=== PATIENT | female | born 1945 | race Caucasian/White ===

== ENCOUNTER 2016-04-24 12:41 | Outpatient (RCR) | payer MEDICARE, OTHER ==
[~2016-04-24 12:41] MED LIST: ALLO300T2 PO; B2/M1TAB PO; CLIN-62; CYCL10TA9 PO; DESL5TAB PO; DICL100G18 TP; ESTR0.5T PO; ESTR42.52 VG; FLUT16SP22 NSEACH; FLUT50DI IH; LEVO88TA26 PO; LISI1TAB6 PO; LISI1TAB8 PO; NTR50C; OLME20TA5; OMEP40CA36 PO; ONDA4TAB8 SL; OXYC-12; OXYC-197 PO; PRM25T PO; PROP1TAB77; SMTR50T PO; TRAM-21 PO; TRAM50TA2 PO; TRAZ-144 PO; VIT1CAPS8 PO; VIT1TABL26 PO; XYLIMELTS PO
--- OUTSIDE RECORDS SUMMARY | 2016-04-24 12:45 | XMS REPORT | Continuity of Care Document ---
Author Author [facility] Organization [facility] Address Unknown Phone Unavailable Care Team Providers Care Electrical Assembly Technician Name Role Phone NIKUNJ HA MD PCP Insurance Providers Payer Name Policy Number Subscriber Name Relationship [employer] [id number] Eduar Cedeño 16 Self / Same As Patient GE [id number] Eduar Cedeño 16 Self / Same As Patient Advance Directives Directive Response Recorded Date/Time Advance Directives Yes 07/17/14 12:19pm Organ Donor Yes 07/17/14 12:19pm Resuscitation Status Full Code 07/17/14 12:19pm Problems No known problems or medical conditions. Medications Medication Dose Route Sig Days/Qty Instructions Order Date Discontinued Date Status Levothyroxine Sodium 88 Mcg PO DAILY 11/28/08 Active Olmesartan 11/28/08 07/14/14 Discontinued Nitrofurantoin Macrocrystals 11/28/08 07/14/14 Discontinued Propoxyphene HCl/Acetaminophen 11/28/08 07/14/14 Discontinued Clindamycin HCl 11/28/08 07/14/14 Discontinued Oxycodone Hcl/Acetaminophen 11/28/08 07/14/14 Discontinued Promethazine HCl 1 Tab PO FOUR TIMES DAILY 14 Qty PRN NAUSEA 11/28/08 Discontinued Tramadol Hcl 50 Mg PO EVERY 6 HOURS PRN PAIN 07/14/14 07/17/14 Discontinued Trazodone Hcl 50 Mg PO BEDTIME 07/14/14 Active Fluticasone Propionate 1 Puff IH TWICE A DAY PRN ALLERGIES PRN ALLERGIES 07/14/14 07/14/14 Discontinued Omeprazole 40 Mg PO DAILY 07/14/14 Active Allopurinol 300 Mg PO DAILY 07/14/14 Active Estradiol 1 Appful VG WEEKLY 07/14/14 Active Vit C/E/Zn/Coppr/Lutein/Zeaxan 1 Each PO DAILY 07/14/14 Active Cyclobenzaprine HCl (Flexeril) 10 Mg PO THREE TIMES A DAY PRN MUSCLE SPASMS 07/14/14 07/17/14 Discontinued Lisinopril/Hydrochlorothiazide 1 Tab PO DAILY 07/14/14 07/17/14 Discontinued Fluticasone Propionate 1 Sprays NSEACH DAILY PRN ALLERGIES PRN ALLERGIES 07/14/14 Active B2/Mag Cit & Ox/Feverfew 1 Each PO 07/17/14 Active Lisinopril/Hydrochlorothiazide 1 Tab PO DAILY 07/17/14 Active Tramadol Hcl 50 Mg PO TWICE A DAY PRN PAIN 20 Qty 07/17/14 Active Social History Social History Problem Response Recorded Date/Time Alcohol Use Denies Use 07/17/2014 12:19pm Recreational Drug Use No 07/17/2014 12:19pm Recent Foreign Travel No 07/17/2014 12:19pm Smoking Status Never a Smoker 07/17/2014 12:15pm Query Response Start Date Stop Date Smoking Status Never a Smoker Hospital Discharge Instructions No hospital discharge instructions. Plan of Care No plan of care. Functional Status No functional status results. Allergies, Adverse Reactions, Alerts Allergen Type Severity Reaction Status Last Updated Sulfa (Sulfonamide Antibiotics) ([id number]) Allergy Unknown Active Oxycodone Allergy Unknown NAUSEA Active 07/14/14 Acetaminophen Allergy Unknown NAUSEA Active 07/14/14 methylprednisolone ([id number]) Allergy Unknown Active 07/14/14 Trimethoprim Allergy Unknown Active 07/14/14 amoxicillin ([id number]) Allergy Mild Active 11/28/08 Celecoxib Allergy Unknown Active 07/14/14 Immunizations No immunization records. Vital Signs Acute Vital Signs Vital Response Date/Time Temperature (Fahrenheit) 98.4 degrees F (97.6 - 99.5) Temperature (Calculated Celsius) 36.09775 degrees C (36.4 - 37.5) Temperature Source Temporal Pulse Rate (adult) 73 bpm (60 - 90) Respiratory Rate 16 bpm (12 - 24) O2 Sat by Pulse Oximetry 95 % (88 - 100) Blood Pressure 182/68 mm Hg Pain Pain Intensity 2 Height (Feet) 5 feet Height (Inches) 6.00 inches Height (Calculated Centimeters) 167.642749 cm Weight (Pounds) 202 pounds Weight (Calculated Grams) 19012.660 gm Weight (Calculated Kilograms) 91.619603 kilograms Calculated BMI 33.61 Results Laboratory Results Test Name Result Units Flags Reference Collection Date/Time Result Date/ Time Comments Sodium Level 143 MMOL/L 135-145 07/17/2014 12:04pm 07/17/2014 12:30pm Potassium Level 3.6 MMOL/L 3.6-5.0 07/17/2014 12:04pm 07/17/2014 12: 30pm Chloride Level 106 MMOL/L 98-107 07/17/2014 12:04pm 07/17/2014 12:30pm Carbon Dioxide Level 26 MMOL/L 21-32 07/17/2014 12:04pm 07/17/2014 12: 30pm Blood Urea Nitrogen 10 MG/DL 7-18 07/17/2014 12:04pm 07/17/2014 12: 30pm Creatinine 0.79 MG/DL 0.60-1.30 07/17/2014 12:04pm 07/17/2014 12:30pm BUN/Creatinine Ratio 13 07/17/2014 12:04pm 07/17/2014 12:30pm Estimat Glomerular Filtration Rate > 60 07/17/2014 12:04pm 2014 12:30pm GFR INTERPRETIVE DATA UNITS FOR ESTIMATED GFR (eGFR): mL/min/1.73 M2 REFERENCE RANGE FOR ESTIMATED GFR (eGFR) eGFR NORMAL eGFR >60 MODERATELY DECREASED eGFR 30-59 SEVERLY DECREASED eGFR 15-29 KIDNEY FAILURE <15 (OR DIALYSIS) Glucose Level 101 MG/DL 70-105 07/17/2014 12:04pm 07/17/2014 12:30pm Calcium Level 9.7 MG/DL 8.5-10.1 07/17/2014 12:04pm 07/17/2014 12:30pm Procedures Procedure Status Date Provider(s) Excision of lesion completed 07/17/14 MERNA ONEIL MD Encounters Encounter Location Date/Time Registered [facility] 07/17/14 10:52am Registered Clinic [facility] 07/13/14 12:51pm
[2016-04-24 13:03] LABS: BASOPHILS # (AUTO) 0.1 10^3/uL (0.0-0.1); BASOPHILS % (AUTO) 1 % (0-10); EOSINOPHILS # (AUTO) 0.2 10^3/uL (0.0-0.3); EOSINOPHILS % (AUTO) 1 % (0-10); LYMPHOCYTES # (AUTO) 3.3 X 10^3 (1.0-4.0); LYMPHOCYTES % (AUTO) 29 % (12-44); MEAN CORPUSCULAR HEMOGLOBIN 27 PG (25-34); MEAN CORPUSCULAR HGB CONC 33 G/DL (32-36); MEAN CORPUSCULAR VOLUME 83 FL (80-99); MEAN PLATELET VOLUME 9.6 FL (7.4-10.4); MONOCYTES # (AUTO) 0.7 X 10^3 (0.0-1.0); MONOCYTES % (AUTO) 6 % (0-12); NEUTROPHILS # (AUTO) 7.3 X 10^3 (1.8-7.8); NEUTROPHILS % (AUTO) 63 % (42-75); PLATELET COUNT 382 10^3/uL (130-400); RED BLOOD COUNT 4.41 10^6/uL (4.35-5.85); RED CELL DISTRIBUTION WIDTH 17.1 % (10.0-14.5); WHITE BLOOD COUNT 11.6 10^3/uL (4.3-11.0)
[2016-04-24 13:27] LABS: ALANINE AMINOTRANSFERASE 21 U/L (0-55); ALBUMIN 3.9 G/DL (3.2-4.5); ANION GAP 10 MMOL/L (5-14); ASPARTATE AMINO TRANSFERASE 20 U/L (5-34); BILIRUBIN,TOTAL 0.4 MG/DL (0.1-1.0); BLOOD UREA NITROGEN 13 MG/DL (7-18); BUN/CREATININE RATIO 15; CARBON DIOXIDE 23 MMOL/L (21-32); CHLORIDE 103 MMOL/L (98-107); CREATININE SERUM 0.87 MG/DL (0.60-1.30); GFR ESTIMATED > 60; GLUCOSE 145 MG/DL (70-105); POTASSIUM 3.5 MMOL/L (3.6-5.0); SODIUM 136 MMOL/L (135-145)
== END 2016-07-23 | disposition home or self-care (01) ==
LOC: ONC 12:41
PROVIDERS: ATTEND Internal Medicine Hematology & Oncology
DX: D64.9 Anemia, unspecified (principal); D47.3 Essential (hemorrhagic) thrombocythemia; D72.829 Elevated white blood cell count, unspecified; I10 Essential (primary) hypertension; E03.9 Hypothyroidism, unspecified; M19.90 Unspecified osteoarthritis, unspecified site; E66.9 Obesity, unspecified; Z68.33 Body mass index [BMI] 33.0-33.9, adult; Z79.899 Other long term (current) drug therapy
CPT/HCPCS: 36415; 80053; 82728; 83540; 85025; 99213

== ENCOUNTER → 2016-05-01 | Outpatient (CLI) | payer MEDICARE, OTHER ==
--- OUTSIDE RECORDS SUMMARY | 2016-05-01 08:19 | XMS REPORT | Continuity of Care Document ---
Author Author [facility] Organization [facility] Address Unknown Phone Unavailable Care Team Providers Care Rework Machine Operator Name Role Phone NIKUNJ HA MD PCP Insurance Providers Payer Name Policy Number Subscriber Name Relationship [employer] [id number] Eduar Cedeño 16 Self / Same As Patient GE [id number] Eduar Cedeño 16 Self / Same As [...] Reaction Status Last Updated Sulfa (Sulfonamide Antibiotics) ([id number]) Allergy Unknown Active Oxycodone Allergy Unknown NAUSEA Active 07/14/14 Acetaminophen Allergy Unknown NAUSEA Active 07/14/14 methylprednisolone ([id number]) Allergy Unknown Active 07/14/14 Trimethoprim Allergy Unknown Active 07/14/14 amoxicillin ([id number]) Allergy Mild Active 11/28/08 Celecoxib Allergy Unknown Active 07/14/14 Immunizations No immunization records. Vital Signs Acute Vital Signs Vital Response Date/Time Temperature (Fahrenheit) 98.4 degrees F (97.6 - 99.5) Temperature (Calculated Celsius) 36.05544 degrees C (36.4 - 37.5) Temperature Source Temporal Pulse Rate (adult) 73 bpm (60 - 90) Respiratory Rate 16 bpm (12 - 24) O2 Sat by Pulse Oximetry 95 % (88 - 100) Blood Pressure 182/68 mm Hg Pain Pain Intensity 2 Height (Feet) 5 feet Height (Inches) 6.00 inches Height (Calculated Centimeters) 167.047371 cm Weight (Pounds) 202 pounds Weight (Calculated Grams) 73629.660 gm Weight (Calculated Kilograms) 91.151789 kilograms Calculated BMI 33.61 Results Laboratory Results [...] Location Date/Time Registered Surgical Day [facility] 07/17/14 10:52am Registered Clinic [facility] 07/13/14 12:51pm
--- NOTE | 2016-05-01 19:15 | Diagnostic Imaging Report ---
EXAMINATION: DEXA scan. INDICATION: Menopause . TECHNIQUE: Bone mineral density estimated based on dual energy radiography over the lumbar spine and femoral necks, was performed. FINDINGS: The lumbar spine T-score is -0.4 T score over the left femoral neck is -0.2 and on the right side is 0. IMPRESSION: Bone mineral density within normal range. Dictated by: Dictated on workstation # [id number]
== END ==
LOC: RAD 08:16
PROVIDERS: ATTEND Internal Medicine
DX: Z13.820 Encounter for screening for osteoporosis (principal); N95.1 Menopausal and female climacteric states
CPT/HCPCS: 77080

== ENCOUNTER → 2016-05-28 | Outpatient (CLI) | payer MEDICARE, OTHER ==
--- NOTE | 2016-05-29 19:41 | Diagnostic Imaging Report ---
Bilateral screening mammogram. The current study was also evaluated with a Computer Aided Detection (CAD) system. INDICATION: Screening. No current complaints stated on the questionnaire. COMPARISON: 05/28/15. FINDINGS: The breasts are composed of scattered fibroglandular densities. There are bilateral well-circumscribed nodular densities slightly more prominent on the right side likely related to fibrocystic changes. Waxing and waning over the years is seen when compared to multiple prior exams. No suspicious irregular mass. No cluster of calcification of suspicion is seen. IMPRESSION: Findings suggestive of fibrocystic changes in the breasts. No suspicious mass. ACR BI-RADS Category 2: Benign findings. Result letter will be mailed to the patient. Note: At least 10% of breast cancer is not imaged by mammography. Dictated by: Dictated on workstation # [id number]
== END ==
LOC: RAD 08:59
PROVIDERS: ATTEND Internal Medicine Hematology & Oncology
DX: Z12.31 Encounter for screening mammogram for malignant neoplasm of breast (principal)
CPT/HCPCS: 77067

== ENCOUNTER 2017-04-23 13:24 | Outpatient (RCR) | payer MEDICARE, OTHER ==
[2017-04-23 13:40] LABS: BASOPHILS # (AUTO) 0.1 10^3/uL (0.0-0.1); BASOPHILS % (AUTO) 1 % (0-10); EOSINOPHILS # (AUTO) 0.2 10^3/uL (0.0-0.3); EOSINOPHILS % (AUTO) 1 % (0-10); HEMATOCRIT 35 % (35-52); HEMOGLOBIN 11.6 G/DL (11.5-16.0); LYMPHOCYTES # (AUTO) 3.9 X 10^3 (1.0-4.0); LYMPHOCYTES % (AUTO) 29 % (12-44); MEAN CORPUSCULAR HEMOGLOBIN 28 PG (25-34); MEAN CORPUSCULAR HGB CONC 33 G/DL (32-36); MEAN CORPUSCULAR VOLUME 83 FL (80-99); MEAN PLATELET VOLUME 9.8 FL (7.4-10.4); MONOCYTES # (AUTO) 0.9 X 10^3 (0.0-1.0); MONOCYTES % (AUTO) 6 % (0-12); NEUTROPHILS # (AUTO) 8.5 X 10^3 (1.8-7.8); NEUTROPHILS % (AUTO) 63 % (42-75); PLATELET COUNT 402 10^3/uL (130-400); RED BLOOD COUNT 4.21 10^6/uL (4.35-5.85); WHITE BLOOD COUNT 13.5 10^3/uL (4.3-11.0)
[2017-04-23 13:52] LABS: BILIRUBIN,TOTAL 0.3 MG/DL (0.1-1.0); CALCIUM 9.1 MG/DL (8.5-10.1); CREATININE SERUM 1.09 MG/DL (0.60-1.30); POTASSIUM 3.7 MMOL/L (3.6-5.0); TOTAL PROTEIN 7.1 GM/DL (6.4-8.2)
== END 2017-07-22 | disposition home or self-care (01) ==
LOC: ONC 13:24
PROVIDERS: ATTEND Internal Medicine Hematology & Oncology
DX: D72.829 Elevated white blood cell count, unspecified (principal); D47.3 Essential (hemorrhagic) thrombocythemia; I10 Essential (primary) hypertension; E03.9 Hypothyroidism, unspecified; M19.91 Primary osteoarthritis, unspecified site; E66.9 Obesity, unspecified; Z68.33 Body mass index [BMI] 33.0-33.9, adult; Z79.899 Other long term (current) drug therapy
CPT/HCPCS: 36415; 80053; 85025; 99213

== ENCOUNTER → 2017-06-03 | Outpatient (CLI) | payer MEDICARE, OTHER ==
--- NOTE | 2017-06-05 11:43 | Diagnostic Imaging Report ---
Digital mammogram, bilateral screening. Comparison: This study is compared to the prior exams of 05/28/2016, 05/28/2015, 05/24/2014 and 05/17/2013. At this time there are no current complaints. Findings: The fibroglandular tissue in both breasts is heterogeneously dense. This does limit the sensitivity of this exam. The previous studies have shown several small rounded/oval densities in both breasts. In the interval since the prior exam a 6 mm rounded density has developed in the midportion of the left breast just medial to the nipple line. This finding is only clearly seen on the craniocaudad view and this may be secondary to superimposition as opposed to a discrete abnormality.. I would recommend that a compression of this area be obtained in the CC projection as well as a true lateral view of the left breast for further study. Rolled views in the CC projection should be obtained as well. If this density persists, ultrasound may be necessary as well. The overall appearance of the breasts has not changed significantly otherwise. There is no primary or secondary sign of malignancy noted. Impression: Additional mammographic views of the left breast will be recommended for further study. Ultrasound may also be necessary. ACR BI-RADS Category 0: Incomplete. (Needs additional imaging evaluation). Result letter will be mailed to the patient. Note: At least 10% of breast cancer is not imaged by mammography. Dictated on workstation # [id number]
== END ==
LOC: RAD 09:05
PROVIDERS: ATTEND Internal Medicine Hematology & Oncology
DX: Z12.31 Encounter for screening mammogram for malignant neoplasm of breast (principal)
CPT/HCPCS: 77067

== ENCOUNTER → 2017-12-21 | Outpatient (CLI) | payer MEDICARE, OTHER ==
[~2017-12-21] MED LIST changes: -OXYC-197 PO; +OXYC1TAB87 PO
--- NOTE | 2017-12-21 13:26 | Diagnostic Imaging Report ---
INDICATION: Six-month followup of left breast density. COMPARISON: 06/03/2017 and 06/22/2017. TECHNIQUE: Digital diagnostic mammography was performed of the left breast with a Computer Aided Detection (CAD) system. FINDINGS: The left breast is heterogeneously dense, limiting the sensitivity of mammography. There are numerous rounded densities throughout the left breast, presumably representing cysts. The previously evaluated circumscribed density in the medial left breast at mid depth is similar to perhaps slightly larger. Today, this appears to represent a cyst as this has fairly smooth margins. This appears inferiorly located on the MLO view approximately 5-6 cm from the nipple. Further evaluation of this area with ultrasound will be performed. No suspicious calcifications are seen. IMPRESSION: Persistent circumscribed density in the lower and slightly inner left breast at approximately the 7 o'clock location 5-6 cm from the nipple. This most likely represents a cyst but further evaluation with ultrasound is recommended and will be performed today. ACR BI-RADS Category 0: Incomplete. (Needs additional imaging evaluation). Result letter will be mailed to the patient. Note: At least 10% of breast cancer is not imaged by mammography. Dictated by: Dictated on workstation # [id number]
--- NOTE | 2017-12-21 20:16 | Diagnostic Imaging Report ---
INDICATION: Abnormal mammogram. This study is performed for further evaluation. COMPARISON: Comparison is made with diagnostic mammogram performed earlier the same day. FINDINGS: Sonographic interrogation of the left breast particularly of the medial left breast was performed. There are numerous simple-appearing cysts located at the 9 o'clock and 7 o'clock locations. Cyst at the 7 o'clock location 4 cm from the nipple likely accounts for the mammographic density measuring approximately 7 mm in diameter. A cyst at the 7 o'clock location 2 cm from the nipple also measures 7 mm. There are two cysts at the 9 o'clock location 1 cm from the nipple measuring 5 mm and 7 mm. No solid mass is seen. IMPRESSION: Multiple left breast cysts. One cyst at the 7 o'clock location 4 cm from the nipple likely accounts for the mammographic density. The patient may return to routine annual screening mammography. ACR BI-RADS Category 2: Benign findings. Dictated by: Dictated on workstation # [id number]
== END ==
LOC: RAD 12:25
PROVIDERS: ATTEND Internal Medicine Hematology & Oncology
DX: N60.02 Solitary cyst of left breast (principal); R92.2 Inconclusive mammogram
CPT/HCPCS: 76642

== ENCOUNTER → 2018-06-23 | Outpatient (CLI) | payer MEDICARE, OTHER ==
--- NOTE | 2018-06-24 21:34 | Diagnostic Imaging Report ---
INDICATION: Routine screening. Comparison is made with prior mammograms from 06/03/2017 and 05/28/2016. 2-D and 3-D bilateral screening mammography was performed with a Computer Aided Detection (CAD) system. FINDINGS: Both breasts are heterogeneously dense, limiting the sensitivity of mammography. Numerous rounded masses throughout both breasts are again noted and most suggestive of cysts. No spiculated masses or malignant-appearing microcalcifications are seen. The axillae are unremarkable. IMPRESSION: No mammographic features suspicious for malignancy are identified. ACR BI-RADS Category 2: Benign findings. Result letter will be mailed to the patient. Note: At least 10% of breast cancer is not imaged by mammography. Dictated by: Dictated on workstation # [id number]
== END ==
LOC: RAD 12:11
PROVIDERS: ATTEND Internal Medicine Hematology & Oncology
DX: Z12.31 Encounter for screening mammogram for malignant neoplasm of breast (principal)
CPT/HCPCS: 77067

== ENCOUNTER → 2018-10-15 | Outpatient (CLI) | payer MEDICARE, OTHER ==
[~2018-10-15] VITALS: Ht 162.6 cm; Wt 90.7 kg
[~2018-10-15] MED LIST changes: +CATHETER FLUSH 10 ML SYR IV PRN; -DESL5TAB PO; +DESL5TAB41 PO; +REGADENOSON 0.4 MG/5 ML SYR (LEXISCAN) IV ONE
[2018-10-15 08:30] VITALS: BP 151/58
[2018-10-15 08:34] VITALS: BP 167/60
--- NOTE | 2018-10-16 13:44 | Cardiology Stress Test Report ---
Stress Test Report Type of NM Stress Test: Test Type: LEXISCAN 0.4MG/5ML Date of Procedure/Referring: Date of Procedure: Oct 15, 2018 PCP Bibi William DO Admitting Physician Bibi William DO Indications: Fatigue Baseline Heart Rate: 62 Baseline Blood Pressure: Blood Pressure Systolic: 167 Blood Pressure Diastolic: 60 Baseline EKG: Baseline EKG: sinus rhythm Summary & Conclusion: Summary: The patient was brought to the stress lab after informed consent was taken. Stress test was performed according to the Lexiscan protocol. 0.4 mg of IV Lexiscan was given. Low-grade exercise was performed. Baseline EKG showed sinus rhythm at 62 BPM. Initial blood pressure was 151/58 mmHg. Maximum heart rate was 84 bpm and blood pressure 172/60 mmHg. Patient did not have any chest pain, arrhythmias or ST segment changes during the stress test. 11 mCi of Myoview were given for rest imaging and 30.1 mCi of Myoview given for stress imaging. Transient ischemic dilatation score 1.1, EF 84 percent. Normal wall motion. Normal myocardial perfusion imaging during rest and stress. Conclusion: Pharmacological stress test was negative for ischemia. Normal LV function with no wall motion abnormalities. Normal myocardial perfusion imaging during rest and stress. Copy Copies To 1: BIBI WILLIAM M RIZWAN MD Oct 16, 2018 13:44
== END ==
LOC: CARD 06:34
PROVIDERS: ATTEND Internal Medicine
DX: R53.83 Other fatigue (principal)
CPT/HCPCS: 78452; 93017

== ENCOUNTER 2018-10-21 12:55 | Outpatient (RCR) | payer MEDICARE, OTHER ==
[2018-07-29 13:39] LABS: BASOPHILS # (AUTO) 0.1 10^3/uL (0.0-0.1); BASOPHILS % (AUTO) 1 % (0-10); EOSINOPHILS # (AUTO) 0.2 10^3/uL (0.0-0.3); EOSINOPHILS % (AUTO) 1 % (0-10); HEMATOCRIT 33 % (35-52); HEMOGLOBIN 11.1 G/DL (11.5-16.0); LYMPHOCYTES # (AUTO) 3.5 X 10^3 (1.0-4.0); LYMPHOCYTES % (AUTO) 25 % (12-44); MEAN CORPUSCULAR HEMOGLOBIN 28 PG (25-34); MEAN CORPUSCULAR HGB CONC 34 G/DL (32-36); MEAN CORPUSCULAR VOLUME 83 FL (80-99); MEAN PLATELET VOLUME 9.9 FL (7.4-10.4); MONOCYTES # (AUTO) 0.8 X 10^3 (0.0-1.0); MONOCYTES % (AUTO) 6 % (0-12); NEUTROPHILS # (AUTO) 9.1 X 10^3 (1.8-7.8); NEUTROPHILS % (AUTO) 67 % (42-75); PLATELET COUNT 377 10^3/uL (130-400); RED CELL DISTRIBUTION WIDTH 15.5 % (10.0-14.5); WHITE BLOOD COUNT 13.7 10^3/uL (4.3-11.0)
[2018-07-29 13:58] LABS: ALBUMIN 4.1 GM/DL (3.2-4.5); BILIRUBIN,TOTAL 0.2 MG/DL (0.1-1.0); CALCIUM 9.5 MG/DL (8.5-10.1); CREATININE SERUM 1.05 MG/DL (0.60-1.30); POTASSIUM 3.7 MMOL/L (3.6-5.0); TOTAL PROTEIN 6.7 GM/DL (6.4-8.2); URIC ACID 6.1 MG/DL (2.6-7.2)
[~2018-10-21 12:55] MED LIST changes: -CATHETER FLUSH 10 ML SYR IV PRN; -REGADENOSON 0.4 MG/5 ML SYR (LEXISCAN) IV ONE
[2018-10-21 13:12] LABS: BASOPHILS # (AUTO) 0.1 10^3/uL (0.0-0.1); BASOPHILS % (AUTO) 1 % (0-10); EOSINOPHILS # (AUTO) 0.2 10^3/uL (0.0-0.3); EOSINOPHILS % (AUTO) 2 % (0-10); HEMATOCRIT 35 % (35-52); HEMOGLOBIN 11.6 G/DL (11.5-16.0); LYMPHOCYTES # (AUTO) 3.2 X 10^3 (1.0-4.0); LYMPHOCYTES % (AUTO) 25 % (12-44); MEAN CORPUSCULAR HEMOGLOBIN 29 PG (25-34); MEAN CORPUSCULAR HGB CONC 34 G/DL (32-36); MEAN CORPUSCULAR VOLUME 85 FL (80-99); MEAN PLATELET VOLUME 9.7 FL (7.4-10.4); MONOCYTES # (AUTO) 0.7 X 10^3 (0.0-1.0); MONOCYTES % (AUTO) 5 % (0-12); NEUTROPHILS # (AUTO) 8.9 X 10^3 (1.8-7.8); NEUTROPHILS % (AUTO) 68 % (42-75); PLATELET COUNT 419 10^3/uL (130-400); RED CELL DISTRIBUTION WIDTH 15.9 % (10.0-14.5); WHITE BLOOD COUNT 13.1 10^3/uL (4.3-11.0)
[2018-10-21 13:33] LABS: ALBUMIN 4.3 GM/DL (3.2-4.5); BILIRUBIN,TOTAL 0.3 MG/DL (0.1-1.0); CALCIUM 9.5 MG/DL (8.5-10.1); CREATININE SERUM 1.03 MG/DL (0.60-1.30); POTASSIUM 3.8 MMOL/L (3.6-5.0); TOTAL PROTEIN 7.5 GM/DL (6.4-8.2)
== END 2018-10-27 | disposition home or self-care (01) ==
LOC: ONC 12:55
PROVIDERS: ATTEND Internal Medicine Hematology & Oncology
DX: D72.829 Elevated white blood cell count, unspecified (principal); D47.3 Essential (hemorrhagic) thrombocythemia; D64.9 Anemia, unspecified; I10 Essential (primary) hypertension; E03.9 Hypothyroidism, unspecified; K21.9 Gastro-esophageal reflux disease without esophagitis; M19.91 Primary osteoarthritis, unspecified site; E66.9 Obesity, unspecified; Z68.33 Body mass index [BMI] 33.0-33.9, adult; Z79.899 Other long term (current) drug therapy
CPT/HCPCS: 36415; 80053; 82728; 83540; 84550; 85025; 99213

== ENCOUNTER 2019-01-11 10:07 | Outpatient (CLI) | payer MEDICARE, OTHER ==
[~2019-01-11] VITALS: Ht 167.7 cm; Wt 93.2 kg
[2019-01-11] MEDS ORDERED: TRAZ-222 PO (10:39)
[2019-01-11] MEDS ORDERED: OMEP20TA7 PO (10:39)
[2019-01-11] MEDS ORDERED: LEVO88TA54 PO (10:39)
[2019-01-11] MEDS ORDERED: ALLO300T2 PO (10:39)
[2019-01-11] MEDS ORDERED: LORA10TA7 PO (10:40)
[2019-01-11] MEDS ORDERED: CYAN200014 PO (10:40)
[2019-01-11] MEDS ORDERED: FLAX100031 PO (10:40)
== END 2019-01-11 10:44 | disposition home or self-care (01) ==
LOC: PREOP 10:07
PROVIDERS: ATTEND Surgery
DX: Z01.818 Encounter for other preprocedural examination (principal)

== ENCOUNTER 2019-02-21 13:42 | Outpatient (RCR) | payer MEDICARE, OTHER ==
[2019-02-10 15:54] LABS: BASOPHILS # (AUTO) 0.1 10^3/uL (0.0-0.1); BASOPHILS % (AUTO) 1 % (0-10); EOSINOPHILS # (AUTO) 0.3 10^3/uL (0.0-0.3); EOSINOPHILS % (AUTO) 3 % (0-10); HEMATOCRIT 33 % (35-52); LYMPHOCYTES # (AUTO) 3.6 X 10^3 (1.0-4.0); LYMPHOCYTES % (AUTO) 28 % (12-44); MEAN CORPUSCULAR HEMOGLOBIN 28 PG (25-34); MEAN CORPUSCULAR HGB CONC 33 G/DL (32-36); MEAN CORPUSCULAR VOLUME 85 FL (80-99); MEAN PLATELET VOLUME 10.2 FL (7.4-10.4); MONOCYTES % (AUTO) 8 % (0-12); NEUTROPHILS % (AUTO) 62 % (42-75); PLATELET COUNT 413 10^3/uL (130-400); RED CELL DISTRIBUTION WIDTH 15.5 % (10.0-14.5)
[2019-02-10 16:14] LABS: ALBUMIN 4.1 GM/DL (3.2-4.5); BILIRUBIN,TOTAL 0.2 MG/DL (0.1-1.0); CREATININE SERUM 1.14 MG/DL (0.60-1.30); POTASSIUM 3.6 MMOL/L (3.6-5.0); TOTAL PROTEIN 7.1 GM/DL (6.4-8.2)
[~2019-02-21 13:42] MED LIST changes: +CYAN200014 PO; +FLAX100031 PO; +LEVO88TA54 PO; +LISI1TAB25 PO; +LORA10TA7 PO; +OMEP20TA7 PO; +TRZ50T PO
== END 2019-05-11 | disposition home or self-care (01) ==
LOC: ONC 13:42
PROVIDERS: ATTEND Internal Medicine Hematology & Oncology
DX: D72.829 Elevated white blood cell count, unspecified (principal); D47.3 Essential (hemorrhagic) thrombocythemia; D64.9 Anemia, unspecified; I10 Essential (primary) hypertension; E03.9 Hypothyroidism, unspecified; K21.9 Gastro-esophageal reflux disease without esophagitis; M19.91 Primary osteoarthritis, unspecified site; E66.9 Obesity, unspecified; K92.9 Disease of digestive system, unspecified; Z79.899 Other long term (current) drug therapy; Z68.33 Body mass index [BMI] 33.0-33.9, adult
CPT/HCPCS: 80053; 82728; 83540; 85025; 99213

== ENCOUNTER → 2019-07-18 | Outpatient (CLI) | payer MEDICARE, OTHER ==
--- NOTE | 2019-07-18 10:53 | Diagnostic Imaging Report ---
INDICATION: Routine screening. COMPARISON: 06/23/2018 and 06/03/2017. TECHNIQUE: 2D and 3D bilateral screening mammography was performed with CAD. FINDINGS: The breasts remain heterogeneously dense, limiting the sensitivity of mammography. Rounded nodular densities in both breasts are again noted and again likely represent small cysts. These have waxed and waned in size since the prior exam. No spiculated mass or malignant appearing microcalcifications are seen. There are benign calcifications present. The axillae are unremarkable. IMPRESSION: No mammographic features suspicious for malignancy are identified. ACR BI-RADS Category 2: Benign findings. Result letter will be mailed to the patient. Note: At least 10% of breast cancer is not imaged by mammography. Dictated by: Dictated on workstation # [id number]
== END ==
LOC: RAD 09:07
PROVIDERS: ATTEND Internal Medicine
DX: Z12.31 Encounter for screening mammogram for malignant neoplasm of breast (principal)
CPT/HCPCS: 77063; 77067

== ENCOUNTER → 2019-10-18 | Outpatient (CLI) | payer MEDICARE, OTHER ==
--- NOTE | 2019-10-18 18:07 | Diagnostic Imaging Report ---
PROCEDURE: MRI lumbar spine. INDICATION: Chronic low back pain. TECHNIQUE: Multiplanar and multisequence noncontrast magnetic resonance imaging was performed of the lumbar spine. CORRELATION STUDY: None. FINDINGS: Trace retrolisthesis of L5 on S1, L2 on L3, and L1 on L2. Alignment also demonstrates minimal leftward curvature to be present. The lumbar vertebral body heights are maintained and without geographic lesion. There is however asymmetric loss of the cortical margins along with predominantly increased T2 and decreased T1 signal intensity at the endplates in the central and right aspect at the L2 and L3 level, likely on a chronic degenerative basis. Conus terminates at the L1 level and is unremarkable. L1-L2: Moderate loss of height. No high-degree canal or foraminal narrowing. L2-L3: Slight loss of disc space height. Asymmetric disc osteophyte formation results in significant right and minimal left foraminal narrowing. Mild ligamentum hypertrophy but without canal stenosis. L3-L4: Moderate ligamentum and facet hypertrophy, greatest on the left. Mild loss of disc space height. Disc osteophyte formation results in [id number] bilateral foraminal narrowing. Slight flattening of the exiting nerve root on the left. L4-L5: Fairly good preservation of disc space height. Ligamentum and facet hypertrophy, left greater than right, with mild trefoil-type spinal canal configuration. High-degree spinal canal stenosis not demonstrated. No high-degree nerve root impingement or foraminal stenosis. L5-S1: Rather significant loss of disc space height. Disc osteophyte formation does result in moderate bilateral foraminal narrowing at site of abutment, with slight flattening of the exiting nerve root. Asymmetric ligamentum and facet hypertrophy greatest on the left accentuating the left foraminal narrowing. Rather prominent atrophic change of the paraspinal musculature. IMPRESSION: 1. Multilevel degenerative changes to the lumbar spine. There are various degrees of canal and, to a greater extent, foraminal narrowing as detailed above. Foraminal stenosis appears most severe on the right at the L2-L3 level as well as the bilateral L5-S1 levels. Dictated by: Dictated on workstation # [id number]
== END ==
LOC: RAD 13:31
PROVIDERS: ATTEND Internal Medicine
DX: M46.06 Spinal enthesopathy, lumbar region (principal); M48.07 Spinal stenosis, lumbosacral region; M25.78 Osteophyte, vertebrae; M47.816 Spondylosis without myelopathy or radiculopathy, lumbar region; M51.36 Other intervertebral disc degeneration, lumbar region; M99.03 Segmental and somatic dysfunction of lumbar region
CPT/HCPCS: 72148

== ENCOUNTER 2020-03-26 14:09 | Outpatient (RCR) | payer MEDICARE, OTHER ==
[2020-03-23 15:56] LABS: BASOPHILS # (AUTO) 0.1 10^3/uL (0.0-0.1); BASOPHILS % (AUTO) 1 % (0-10); EOSINOPHILS # (AUTO) 0.2 10^3/uL (0.0-0.3); EOSINOPHILS % (AUTO) 1 % (0-10); HEMATOCRIT 33 % (35-52); HEMOGLOBIN 10.8 g/dL (11.5-16.0); LYMPHOCYTES # (AUTO) 4.4 10^3/uL (1.0-4.0); LYMPHOCYTES % (AUTO) 29 % (12-44); MEAN CORPUSCULAR HEMOGLOBIN 27 pg (25-34); MEAN CORPUSCULAR HGB CONC 33 g/dL (32-36); MEAN CORPUSCULAR VOLUME 83 fL (80-99); MEAN PLATELET VOLUME 9.3 fL (9.0-12.2); MONOCYTES % (AUTO) 7 % (0-12); NEUTROPHILS # (AUTO) 9.4 10^3/uL (1.8-7.8); NEUTROPHILS % (AUTO) 62 % (42-75); PLATELET COUNT 441 10^3/uL (130-400); WHITE BLOOD COUNT 15.1 10^3/uL (4.3-11.0)
[2020-03-23 16:16] LABS: ALBUMIN 4.1 GM/DL (3.2-4.5); BILIRUBIN,TOTAL 0.2 MG/DL (0.1-1.0); CALCIUM 9.3 MG/DL (8.5-10.1); CREATININE SERUM 1.01 MG/DL (0.60-1.30); POTASSIUM 3.8 MMOL/L (3.6-5.0); TOTAL PROTEIN 7.3 GM/DL (6.4-8.2)
[~2020-03-26 14:09] MED LIST changes: -LISI1TAB25 PO; +LISI1TAB46 PO
== END 2020-06-21 | disposition home or self-care (01) ==
LOC: ONC 14:09
PROVIDERS: ATTEND Internal Medicine Hematology & Oncology
DX: D72.829 Elevated white blood cell count, unspecified (principal); D47.3 Essential (hemorrhagic) thrombocythemia; D64.9 Anemia, unspecified; I10 Essential (primary) hypertension; E03.9 Hypothyroidism, unspecified; D75.89 Other specified diseases of blood and blood-forming organs; K21.9 Gastro-esophageal reflux disease without esophagitis; M19.91 Primary osteoarthritis, unspecified site; E66.9 Obesity, unspecified; K92.9 Disease of digestive system, unspecified; Z79.899 Other long term (current) drug therapy; Z68.33 Body mass index [BMI] 33.0-33.9, adult
CPT/HCPCS: 80053; 82728; 83540; 85025; 99213

== ENCOUNTER 2020-09-18 13:50 | Outpatient (RCR) | payer MEDICARE, OTHER ==
[2020-09-14 10:58] LABS: BASOPHILS # (AUTO) 0.1 10^3/uL (0.0-0.1); BASOPHILS % (AUTO) 1 % (0-10); EOSINOPHILS # (AUTO) 0.1 10^3/uL (0.0-0.3); EOSINOPHILS % (AUTO) 1 % (0-10); HEMATOCRIT 35 % (35-52); HEMOGLOBIN 11.3 g/dL (11.5-16.0); LYMPHOCYTES # (AUTO) 3.3 10^3/uL (1.0-4.0); LYMPHOCYTES % (AUTO) 25 % (12-44); MEAN CORPUSCULAR HEMOGLOBIN 28 pg (25-34); MEAN CORPUSCULAR HGB CONC 33 g/dL (32-36); MEAN CORPUSCULAR VOLUME 85 fL (80-99); MEAN PLATELET VOLUME 9.1 fL (9.0-12.2); MONOCYTES % (AUTO) 7 % (0-12); NEUTROPHILS % (AUTO) 66 % (42-75); PLATELET COUNT 458 10^3/uL (130-400); WHITE BLOOD COUNT 13.5 10^3/uL (4.3-11.0)
[2020-09-14 11:20] LABS: ALBUMIN 4.2 GM/DL (3.2-4.5); BILIRUBIN,TOTAL 0.3 MG/DL (0.1-1.0); CALCIUM 9.5 MG/DL (8.5-10.1); CREATININE SERUM 1.04 MG/DL (0.60-1.30); TOTAL PROTEIN 7.1 GM/DL (6.4-8.2)
== END 2020-09-19 07:48 | disposition home or self-care (01) ==
LOC: ONC 13:50
PROVIDERS: ATTEND Internal Medicine Hematology & Oncology
DX: D72.829 Elevated white blood cell count, unspecified (principal); D47.3 Essential (hemorrhagic) thrombocythemia; D64.9 Anemia, unspecified; M48.061 Spinal stenosis, lumbar region without neurogenic claudication; M19.91 Primary osteoarthritis, unspecified site; I10 Essential (primary) hypertension; E03.9 Hypothyroidism, unspecified; K21.9 Gastro-esophageal reflux disease without esophagitis; E66.9 Obesity, unspecified; Z79.899 Other long term (current) drug therapy; Z68.33 Body mass index [BMI] 33.0-33.9, adult; Z87.19 Personal history of other diseases of the digestive system
CPT/HCPCS: 80053; 82728; 83540; 83550; 85025; 99213

== ENCOUNTER → 2021-03-14 | Outpatient (CLI) | payer MEDICARE, OTHER ==
--- NOTE | 2021-03-14 10:24 | Diagnostic Imaging Report ---
INDICATION: Neck pain. TIME OF EXAM: 9:36 AM Curvature and alignment of the cervical spine is normal. There is degenerative disc disease at C5-C6 level with disc space narrowing and marginal spurring. Multilevel facet arthropathy is also noted. Prevertebral tissues are normal. Odontoid is intact. No fractures are seen. IMPRESSION: Lower cervical spondylosis and facet arthropathy. No acute bony abnormality is detected. Dictated by: Dictated on workstation # [id number]
== END ==
LOC: RAD 08:57
PROVIDERS: ATTEND Internal Medicine
DX: M47.812 Spondylosis without myelopathy or radiculopathy, cervical region (principal); M50.322 Other cervical disc degeneration at C5-C6 level; M99.01 Segmental and somatic dysfunction of cervical region; M46.01 Spinal enthesopathy, occipito-atlanto-axial region
CPT/HCPCS: 72050

== ENCOUNTER → 2021-09-30 | Outpatient (CLI) | payer MEDICARE, OTHER ==
[~2021-09-30] MED LIST changes: +OMEP20TA56 PO; -OMEP20TA7 PO
--- NOTE | 2021-09-30 17:23 | Diagnostic Imaging Report ---
Indication: Routine screening. Comparison is made with prior mammograms from 08/06/2020 and 07/18/2019. 2-D and 3-D bilateral screening mammography was performed with CAD. Both breasts are heterogeneously dense, limiting the sensitivity of mammography. Fibronodular parenchymal pattern is again noted. There are numerous circumscribed densities in both breasts suggestive of cysts. No spiculated mass or malignant-appearing microcalcifications are seen. Axillae are unremarkable. IMPRESSION: BI-RADS Category 2 No mammographic features suspicious for malignancy are identified ACR BI-RADS Category 2: Benign findings. Result letter will be mailed to the patient. Note: At least 10% of breast cancer is not imaged by mammography. Dictated by: Dictated on workstation # [id number]
== END ==
LOC: RAD 11:15
PROVIDERS: ATTEND Internal Medicine
DX: Z12.31 Encounter for screening mammogram for malignant neoplasm of breast (principal)
CPT/HCPCS: 77063; 77067

== ENCOUNTER 2021-10-07 13:39 | Outpatient (RCR) | payer MEDICARE, OTHER ==
[2021-10-03 09:12] LABS: BASOPHILS # (AUTO) 0.1 10^3/uL (0.0-0.1); BASOPHILS % (AUTO) 1 % (0-10); EOSINOPHILS # (AUTO) 0.1 10^3/uL (0.0-0.3); EOSINOPHILS % (AUTO) 1 % (0-10); HEMATOCRIT 35 % (35-52); HEMOGLOBIN 11.6 g/dL (11.5-16.0); LYMPHOCYTES # (AUTO) 3.4 10^3/uL (1.0-4.0); LYMPHOCYTES % (AUTO) 22 % (12-44); MEAN CORPUSCULAR HEMOGLOBIN 28 pg (25-34); MEAN CORPUSCULAR HGB CONC 33 g/dL (32-36); MEAN CORPUSCULAR VOLUME 85 fL (80-99); MONOCYTES # (AUTO) 1.1 10^3/uL (0.0-1.0); MONOCYTES % (AUTO) 7 % (0-12); NEUTROPHILS # (AUTO) 10.6 10^3/uL (1.8-7.8); NEUTROPHILS % (AUTO) 69 % (42-75); PLATELET COUNT 395 10^3/uL (130-400); WHITE BLOOD COUNT 15.4 10^3/uL (4.3-11.0)
[2021-10-03 09:36] LABS: ALBUMIN 4.1 GM/DL (3.2-4.5); BILIRUBIN,TOTAL 0.3 MG/DL (0.1-1.0); CALCIUM 9.3 MG/DL (8.5-10.1); CREATININE SERUM 0.93 MG/DL (0.60-1.30); TOTAL PROTEIN 7.1 GM/DL (6.4-8.2)
== END 2021-10-30 | disposition home or self-care (01) ==
LOC: ONC 13:39
PROVIDERS: ATTEND Internal Medicine Hematology & Oncology
DX: D72.829 Elevated white blood cell count, unspecified (principal); K21.9 Gastro-esophageal reflux disease without esophagitis; M48.061 Spinal stenosis, lumbar region without neurogenic claudication; D64.9 Anemia, unspecified; D75.838 Other thrombocytosis; E66.9 Obesity, unspecified
CPT/HCPCS: 36415; 80053; 82728; 83540; 83550; 85025; 99213

== ENCOUNTER 2022-10-06 13:23 | Outpatient (RCR) | payer MEDICARE, OTHER ==
[2022-10-03 09:46] LABS: BASOPHILS # (AUTO) 0.1 10^3/uL (0.0-0.1); BASOPHILS % (AUTO) 1 % (0-10); EOSINOPHILS # (AUTO) 0.2 10^3/uL (0.0-0.3); EOSINOPHILS % (AUTO) 1 % (0-10); HEMATOCRIT 41 % (35-52); HEMOGLOBIN 12.9 g/dL (11.5-16.0); LYMPHOCYTES # (AUTO) 2.9 10^3/uL (1.0-4.0); LYMPHOCYTES % (AUTO) 22 % (12-44); MEAN CORPUSCULAR HEMOGLOBIN 28 pg (25-34); MEAN CORPUSCULAR HGB CONC 32 g/dL (32-36); MEAN CORPUSCULAR VOLUME 87 fL (80-99); MEAN PLATELET VOLUME 10.2 fL (9.0-12.2); MONOCYTES # (AUTO) 0.7 10^3/uL (0.0-1.0); MONOCYTES % (AUTO) 5 % (0-12); NEUTROPHILS # (AUTO) 9.5 10^3/uL (1.8-7.8); NEUTROPHILS % (AUTO) 71 % (42-75); PLATELET COUNT 387 10^3/uL (130-400); WHITE BLOOD COUNT 13.5 10^3/uL (4.3-11.0)
[2022-10-03 10:08] LABS: ALBUMIN 3.9 GM/DL (3.2-4.5); BILIRUBIN,TOTAL 0.4 MG/DL (0.1-1.0); CALCIUM 9.2 MG/DL (8.5-10.1); CREATININE SERUM 0.95 MG/DL (0.60-1.30); POTASSIUM 3.5 MMOL/L (3.6-5.0); TOTAL PROTEIN 7.1 GM/DL (6.4-8.2)
== END 2022-10-30 | disposition home or self-care (01) ==
LOC: ONC 13:23
PROVIDERS: ATTEND Internal Medicine Hematology & Oncology
DX: D64.9 Anemia, unspecified (principal); D75.839 Thrombocytosis, unspecified; K21.9 Gastro-esophageal reflux disease without esophagitis; M48.061 Spinal stenosis, lumbar region without neurogenic claudication; D72.829 Elevated white blood cell count, unspecified; E66.9 Obesity, unspecified; K08.9 Disorder of teeth and supporting structures, unspecified
CPT/HCPCS: 80053; 82728; 83540; 83550; 85025; 99214

== ENCOUNTER → 2022-10-14 | Outpatient (CLI) | payer MEDICARE, OTHER ==
--- NOTE | 2022-10-14 15:16 | Diagnostic Imaging Report ---
INDICATION: Routine screening. Comparison is made with prior mammogram from 03/21/2021 and 08/06/2020. 2-D and 3-D bilateral screening mammography was performed with CAD. Both breasts are heterogeneously dense, limiting the sensitivity of mammography. Circumscribed densities are again noted consistent with benign etiologies. No spiculated mass or malignant-appearing microcalcifications are seen. There are benign calcifications. Axillae are unremarkable. IMPRESSION: No mammographic features suspicious for malignancy are identified. ACR BI-RADS Category 2: Benign findings. Result letter will be mailed to the patient. Note: At least 10% of breast cancer is not imaged by mammography. BI-RADS Category 2 Dictated by: Dictated on workstation # [id number]
== END ==
LOC: RAD 07:54
PROVIDERS: ATTEND Internal Medicine
DX: Z12.31 Encounter for screening mammogram for malignant neoplasm of breast (principal)
CPT/HCPCS: 77063; 77067

== ENCOUNTER 2023-01-28 17:41 | Observation (INO) | payer MEDICARE, OTHER ==
[~2023-01-28] VITALS: Ht 167.7 cm; Wt 85.8 kg
[~2023-01-28 17:41] MED LIST changes: -ESTR0.5T PO; +ESTR0.5T2 PO
--- NOTE | 2023-01-28 17:56 | ED Lower Extremity ---
General Chief Complaint: Lower Extremity Stated Complaint: KNEE PAIN Nursing Triage Note: PT PRESENTS TO ED VIA EMS FROM [facility] FOR L KNEE PAIN STARTING TODAY. PT DENIES INJURY. PT REPORTS FEELING AN INCREASE IN SWELLING IN THAT KNEE AND FEELS THAT IT IS WARMER THAN HER OTHER KNEE. PT ALSO REPORTS INCREASE IN STIFFNESS OF HER KNEE. Source: patient Exam Limitations: no limitations History of Present Illness Date Seen by Provider: Jan 28, 2023 Time Seen by Provider: 17:55 Initial Comments Patient is a 77-year-old female who presents ED by EMS for left knee pain. Knee pain started today. No specific injury. She noted increased swelling and pain. She states the left knee feels warm. Does have a history of gout currently on allopurinol. She does have a history of arthritis. She did grab some boxes yesterday but denies of any specific injury. She denies any pop. She recently finished Cipro secondary to cystitis. She does have some calf pain. Denies history of DVT. Denies of any redness, bruising but does report swelling. Not able to bear weight. She is a resident at [facility] and states. She denies any distal numbness and tingling. Does take tramadol and gabapentin for her pain. She has not received her dose this evening. Allergies and Home Medications Allergies Coded Allergies: amoxicillin (Unverified Allergy, Mild, 11/28/08) Sulfa (Sulfonamide Antibiotics) (Unverified Allergy, Unknown, 07/14/14) acetaminophen (Unverified Allergy, Unknown, NAUSEA, 07/14/14) celecoxib (Unverified Allergy, Unknown, 07/14/14) methylprednisolone (Unverified Allergy, Unknown, 07/14/14) trimethoprim (Unverified Allergy, Unknown, 07/14/14) oxycodone (Verified Adverse Reaction, Severe, NAUSEA, 02/11/15) Severe constipation Patient Home Medication List Home Medication List Reviewed: Yes Acetaminophen (Tylenol Extra Strength) 500 Mg Tablet, 1,000 MG PO Q8H PRN for PAIN-MILD (1-4), (Reported) Entered as Reported by: TD TORRES on 01/29/231101 Last Action: Reviewed Allopurinol (Allopurinol) 100 Mg Tablet, 100 MG PO DAILY, (Reported) Entered as Reported by: TD TORRES on 01/29/231101 Last Action: Reviewed Ascorbic Acid (Vitamin C) 500 Mg Tablet, 500 MG PO DAILY, (Reported) Entered as Reported by: TD TORRES on 01/29/231101 Last Action: Reviewed Cyanocobalamin (Vitamin B-12) (Vitamin B-12) 1,000 Mcg Capsule, 1,000 MCG PO DAILY, (Reported) Entered as Reported by: TD TORRES on 01/29/231101 Last Action: Reviewed Flaxseed Oil (Flaxseed Oil) 1,000 Mg Capsule, 1,000 MG PO DAILY, (Reported) Entered as Reported by: TD TORRES on 01/29/231101 Last Action: Reviewed Gabapentin (Gabapentin) 100 Mg Capsule, 100 MG PO BID, (Reported) Entered as Reported by: TD TORRES on 01/29/231101 Last Action: Reviewed Levothyroxine Sodium (Synthroid) 88 Mcg Tablet, 88 MCG PO DAILY, (Reported) Entered as Reported by: TD TORRES on 01/29/231101 Last Action: Reviewed Lisinopril (Lisinopril) 20 Mg Tablet, 20 MG PO DAILY, (Reported) Entered as Reported by: TD TORRES on 01/29/231101 Last Action: Reviewed Mesalamine (Mesalamine) 800 Mg Tablet.dr, 800 MG PO BID, (Reported) Entered as Reported by: TD TORRES on 01/29/231101 Last Action: Reviewed Mirabegron (Myrbetriq) 25 Mg Tab.er.24h, 25 MG PO HS, (Reported) Entered as Reported by: TD TORRES on 01/29/231101 Last Action: Reviewed Omeprazole (Omeprazole) 40 Mg Capsule.dr, 40 MG PO DAILY, (Reported) Entered as Reported by: TD TORRES on 01/29/231101 Last Action: Reviewed Sumatriptan Succinate (Sumatriptan Succinate) 50 Mg Tablet, 50 MG PO UD PRN for HEADACHE, (Reported) Entered as Reported by: TD TORRES on 01/29/231101 Last Action: Reviewed Tramadol HCl (Tramadol HCl) 50 Mg Tablet, 50 MG PO BID, (Reported) Entered as Reported by: TD TORRES on 01/29/231101 Last Action: Reviewed Trazodone HCl (Trazodone HCl) 50 Mg Tablet, 100 MG PO HS, (Reported) Entered as Reported by: RENATA NOVOA on 01/11/19 1039 Last Action: Reviewed Vit A,C & E/Lutein/Minerals (Ocuvite with Lutein Tablet) 1 Each Tablet, 1 EACH PO DAILY, (Reported) Entered as Reported by: EPIFANIO SWENSON on 04/17/15 1100 Last Action: Reviewed Xylitol (Xylimelts) 500 Mg Ma.buc.tab, 500 MG MM HS, (Reported) Entered as Reported by: TD TORRES on 01/29/23 1102 Last Action: Reviewed Discontinued Medications Allopurinol (Allopurinol) 300 Mg Tablet, 150 MG PO DAILY, (Reported) Discontinued Reason: No Longer Taking Entered as Reported by: RENATA NOVOA on 01/11/19 103 Last Action: Discontinued Cyanocobalamin (Vitamin B-12) (Vitamin B-12) 2,000 Mcg Tablet, 2,000 MCG PO DAILY, (Reported) Discontinued Reason: Prescription changed Entered as Reported by: RENATA NOVOA on 01/11/19 1040 Flaxseed Oil (Flax Seed Oil) 1,000 Mg Capsule, 1,000 MG PO DAILY, (Reported) Discontinued Reason: No Longer Taking Entered as Reported by: RENATA NOVOA on 01/11/19 104 Last Action: Discontinued Levothyroxine Sodium (Levothyroxine Sodium) 88 Mcg Tablet, 88 MCG PO DAILY, (Reported) Discontinued Reason: No Longer Taking Entered as Reported by: RENATA NOVOA on 01/11/19 103 Last Action: Discontinued Lisinopril/Hydrochlorothiazide (Lisinopril-Hctz 20-12.5 mg Tab) 1 Each Tablet, 2 EACH PO DAILY, (Reported) Discontinued Reason: No Longer Taking Entered as Reported by: EPIFANIO SWENSON on 04/17/15 1100 Last Action: Discontinued Loratadine (Loratadine) 10 Mg Tablet, 10 MG PO DAILY, (Reported) Discontinued Reason: No Longer Taking Entered as Reported by: RENATA NOVOA on 01/11/19 1040 Last Action: Discontinued Omeprazole (Omeprazole) 20 Mg Tablet.dr, 40 MG PO DAILY, (Reported) Discontinued Reason: No Longer Taking Entered as Reported by: RENATA NOVOA on 01/11/19 1039 Last Action: Discontinued Sumatriptan Succinate (Imitrex) 50 Mg Tab, 50 MG PO PRN PRN for MIGRAINE, (Reported) Discontinued Reason: No Longer Taking Entered as Reported by: EPIFANIO SWENSON on 04/17/15 1100 Last Action: Discontinued [Xylimelts] , 1 TAB PO HS, (Reported) Discontinued Reason: No Longer Taking Entered as Reported by: EPIFANIO SWENSON on 04/17/151099 Last Action: Discontinued Review of Systems Constitutional: No chills, No diaphoresis EENTM: No ear pain, No blurred vision, No double vision Respiratory: No cough, No dyspnea on exertion Cardiovascular: No chest pain Gastrointestinal: No abdominal pain, No diarrhea, No nausea, No vomiting Genitourinary: No decreased output, No discharge Musculoskeletal: joint pain, joint swelling, muscle pain Skin: No change in color, No change in hair/nails All Other Systems Reviewed Negative Unless Noted: Yes Past Scggusv-Vmlhsm-Rzudxv Hx Patient Social History Tobacco Use?: No Substance use?: No Alcohol Use?: No Pt feels they are or have been: No Seasonal Allergies Seasonal Allergies: Yes Past Medical History Surgery/Hospitalization HX: PMH: HTN, HYPOTHYROIDISM, MIGRAINES, SLEEP DISORDER, GOUT SX: D & C, HYSTERECTOMY, PARTIAL THYROIDECTOMY, L SHOUYLDER Surgeries: Yes (LEFT BREAST BX, R ROTATOR CUFF X2, TRIGGER FINGER RELEASE, R KNEE SCOPE X2) Abdominal, Gallbladder, Hysterectomy, Orthopedic, Thyroidectomy Respiratory: No Cardiac: Yes Hypertension Neurological: No Genitourinary: Yes (overactive bladder) Gastrointestinal: Yes (dysphagia) Colitis, Gastroesophageal Reflux Musculoskeletal: Yes Arthritis, Gout Endocrine: Yes Hypothyroidsim HEENT: No Loss of Vision: Bilateral Cancer: No Psychosocial: No Integumentary: No Blood Disorders: No Physical Exam Vital Signs Vital Signs - First Documented 01/28/23 17:46 Temp 37.4 Pulse 80 Resp 16 B/P (MAP) 202/97 (132) Pulse Ox 97 Capillary Refill : Less Than 3 Seconds Height, Weight, BMI Height: 5'4.00" Weight: 200lbs. 0.0oz. 90.402069ph; 30.00 BMI Method: General Appearance: WD/WN, no apparent distress HEENT: PERRL/EOMI, normal ENT inspection, TMs normal, pharynx normal Neck: non-tender, full range of motion, supple Cardiovascular: regular rate, rhythm, no edema, no gallop Respiratory: chest non-tender, lungs clear, normal breath sounds Gastrointestinal: normal bowel sounds, non tender, soft, no organomegaly Back: normal inspection Hips: bilateral hip non-tender, bilateral hip normal inspection, bilateral hip normal range of motion Legs: left leg swelling Knees: left knee other (Left knee swelling with mild warmth without erythema. Left proximal calf tenderness without bruising redness. Limited passive range of motion of left knee. Neurovascular intact left leg.) Ankles: bilateral ankle non-tender, bilateral ankle normal inspection, bilateral ankle normal range of motion Feet: bilateral foot non-tender, bilateral foot normal inspection, bilateral foot normal range of motion Neurologic/Psychiatric: waterproof bag sewer II-XII nml as tested, no motor/sensory deficits, alert, normal mood/affect, oriented x 3 Skin: normal color, warm/dry Progress/Results/Core Measures Results/Orders Lab Results Laboratory Tests Test 01/28/23 18:10 Range/Units White Blood Count 14.7 H 4.3-11.0 10^3/uL Red Blood Count 4.20 3.80-5.11 10^6/uL Hemoglobin 11.9 11.5-16.0 g/dL Hematocrit 37 35-52 % Mean Corpuscular Volume 89 80-99 fL Mean Corpuscular Hemoglobin 28 25-34 pg Mean Corpuscular Hemoglobin Concent 32 32-36 g/dL Red Cell Distribution Width 15.1 H 10.0-14.5 % Platelet Count 345 130-400 10^3/uL Mean Platelet Volume 9.8 9.0-12.2 fL Immature Granulocyte % (Auto) 0 % Neutrophils (%) (Auto) 66 42-75 % Lymphocytes (%) (Auto) 23 12-44 % Monocytes (%) (Auto) 8 0-12 % Eosinophils (%) (Auto) 2 0-10 % Basophils (%) (Auto) 1 0-10 % Neutrophils # (Auto) 9.7 H 1.8-7.8 10^3/uL Lymphocytes # (Auto) 3.4 1.0-4.0 10^3/uL Monocytes # (Auto) 1.1 H 0.0-1.0 10^3/uL Eosinophils # (Auto) 0.3 0.0-0.3 10^3/uL Basophils # (Auto) 0.1 0.0-0.1 10^3/uL Immature Granulocyte # (Auto) 0.1 0.0-0.1 10^3/uL Neutrophils % (Manual) 59 % Lymphocytes % (Manual) 30 % Monocytes % (Manual) 11 % Platelet Estimate ADEQUATE Blood Morphology Comment NORMAL Erythrocyte Sedimentation Rate 37 H 0-30 MM/HR Prothrombin Time 12.7 12.2-14.7 SEC INR Comment 0.9 0.8-1.4 Activated Partial Thromboplast Time 33 24-35 SEC D-Dimer 0.73 H 0.00-0.49 UG/ML Sodium Level 140 135-145 MMOL/L Potassium Level 3.5 L 3.6-5.0 MMOL/L Chloride Level 105 98-107 MMOL/L Carbon Dioxide Level 23 21-32 MMOL/L Anion Gap 12 5-14 MMOL/L Blood Urea Nitrogen 13 7-18 MG/DL Creatinine 0.95 0.60-1.30 MG/DL Estimat Glomerular Filtration Rate 61 BUN/Creatinine Ratio 14 Glucose Level 100 70-105 MG/DL Uric Acid 5.1 2.6-7.2 MG/DL Calcium Level 9.1 8.5-10.1 MG/DL Corrected Calcium 9.3 8.5-10.1 MG/DL Total Bilirubin 0.3 0.1-1.0 MG/DL Aspartate Amino Transf (AST/SGOT) 16 5-34 U/L Alanine Aminotransferase (ALT/SGPT) 15 0-55 U/L Alkaline Phosphatase 69 40-136 U/L C-Reactive Protein High Sensitivity 2.66 H 0.00-0.50 MG/DL Total Protein 6.8 6.4-8.2 GM/DL Albumin 3.8 3.2-4.5 GM/DL My Orders Orders - DEANA METZGER Knee, Left, 3 Views (01/28/23 17:54) Fibrin Degradation Products (01/28/23 17:54) Cbc And Automated Diff (01/28/23 17:54) Uric Acid (01/28/23 17:54) Comprehensive Metabolic Panel (01/28/23 17:54) Erythrocyte Sedimentation Rate (01/28/23 17:54) Hs C Reactive Protein (01/28/23 17:54) Tramadol Tablet (Ultram Tablet) (01/28/23 18:00) Manual Differential (01/28/23 18:10) Ed Admission (Communication) (01/28/23 19:40) Partial Thromboplastin Time (01/28/23 19:47) Protime With Inr (01/28/23 19:47) Enoxaparin Injection (Enoxaparin Injecti (01/28/23 20:00) Ua Culture If Indicated (01/28/23 19:48) Prednisone Tablet (Prednisone Tablet) (01/28/23 20:00) Methylprednisolone Sod Succ (Methylpredn (01/28/23 20:00) Medications Given in ED Vital Signs/I&O 01/28/23 17:46 Temp 37.4 Pulse 80 Resp 16 B/P (MAP) 202/97 (132) Pulse Ox 97 Blood Pressure Mean: 132 Departure Communication (PCP) Reviewed previous ER visits, H&P, lab testing. History of hypertension currently on lisinopril. Left knee pain acute onset today. No specific injury. She reports swelling. Recently finished Cipro secondary to a urinary tract infection. Differential diagnosis gout, knee sprain, osteoarthritis, DVT, septic joint. On exam she does have some swelling to the left knee proximal left calf. She does have some proximal left calf tenderness but pain appears to be more localized to the anterior knee. Limited range of motion. History of arthritis. Denies any fall. Did move some boxes yesterday but cannot recall any specific injury. She denies of any pop or locking of the left knee. She does use a walker not able to bear weight. Generalized lab work with D-dimer, uric acid x-ray of the left knee was ordered. X-ray was obtained which did not show any evidence of acute fracture or severe arthritic changes. CBC 14.7. ESR 37, CRP of 2. Chemistry was otherwise grossly unremarkable. D-dimer was slightly elevated 0.73. She is concern for potential tendon rupture secondary to the Cipro. Possibility but there is no evidence of bruising around the left knee or sensation of hearing or feeling a snap or a pop suggesting a tendon rupture. Higher on the differential would be gout with her known history. Typically has gout in her left foot. Her uric acid was 5.1 but she is currently on allopurinol and may be slightly lower during a acute flare. There is no evidence of erythema. Less likely septic arthritis since this was fairly acute onset. She states her white blood count is chronically elevated and currently being managed by oncology. there was concern for leukemia. She denies history of cancer. Not able to obtain ultrasound in the evenings. She was not able to stand and bear weight. I discussed this patient with Dr. Fuller hospitalist on-call for Dr. William. At this time we discussed starting Solu-Medrol IV and prednisone 40 mg daily. She is allergic to methylprednisolone Medrol Dosepak but has received IM shots in the past. She was hypertensive but states her blood pressure has been fairly normal at home. Does take lisinopril 20 mg. Could be elevated secondary to the pain. Will continue monitoring and treating with her medication. Dr. Fuller recommended no antibiotics at this time. Agreed to admission. Continue to treat with steroids to see if this improves her pain suggesting diagnosis of gout. If no improvement may need further evaluation with arthrocentesis. She did receive a dose of Lovenox prophylactically until ultrasound in the morning since slight elevated D-dimer with some proximal calf pain and swelling. But appears to be more proximal and a likely associated to the left knee. She agreed with admission. Full code Impression Primary Impression: Gout flare Disposition: ADMITTED INPATIENT Condition: Stable Admissions Decision to Admit Reason: Admit from ER (General) Decision to Admit/Date: Jan 28, 2023 Time/Decision to Admit Time: 20:00 Departure-Patient Inst. Referrals: BIBI WILLIAM DO (PCP/Family) Primary Care Physician DEANA METZGER Jan 28, 2023 17:56
--- NOTE | 2023-01-28 18:15 | Diagnostic Imaging Report ---
INDICATION: Left knee pain. FINDINGS: Three views of the left knee show no fracture, dislocation or other acute abnormality. IMPRESSION: Negative left knee. Dictated by: Dictated on workstation # [id number]
[2023-01-28 18:23] LABS: BASOPHILS # (AUTO) 0.1 10^3/uL (0.0-0.1); BASOPHILS % (AUTO) 1 % (0-10); EOSINOPHILS # (AUTO) 0.3 10^3/uL (0.0-0.3); EOSINOPHILS % (AUTO) 2 % (0-10); HEMATOCRIT 37 % (35-52); HEMOGLOBIN 11.9 g/dL (11.5-16.0); LYMPHOCYTES # (AUTO) 3.4 10^3/uL (1.0-4.0); LYMPHOCYTES % (AUTO) 23 % (12-44); MEAN CORPUSCULAR HEMOGLOBIN 28 pg (25-34); MEAN CORPUSCULAR HGB CONC 32 g/dL (32-36); MEAN CORPUSCULAR VOLUME 89 fL (80-99); MEAN PLATELET VOLUME 9.8 fL (9.0-12.2); MONOCYTES # (AUTO) 1.1 10^3/uL (0.0-1.0); MONOCYTES % (AUTO) 8 % (0-12); NEUTROPHILS # (AUTO) 9.7 10^3/uL (1.8-7.8); NEUTROPHILS % (AUTO) 66 % (42-75); PLATELET COUNT 345 10^3/uL (130-400); WHITE BLOOD COUNT 14.7 10^3/uL (4.3-11.0)
[2023-01-28 18:38] LABS: ALBUMIN 3.8 GM/DL (3.2-4.5); BILIRUBIN,TOTAL 0.3 MG/DL (0.1-1.0); CALCIUM 9.1 MG/DL (8.5-10.1); CREATININE SERUM 0.95 MG/DL (0.60-1.30); POTASSIUM 3.5 MMOL/L (3.6-5.0); TOTAL PROTEIN 6.8 GM/DL (6.4-8.2); URIC ACID 5.1 MG/DL (2.6-7.2)
[2023-01-28 18:47] LABS: ERYTHROCYTE SEDIMENTATION RATE 37 MM/HR (0-30)
[2023-01-28 19:19] LABS: LYMPHOCYTES % (MANUAL) 30 %; MONOCYTES % (MANUAL) 11 %; NEUTROPHILS % (MANUAL) 59 %; PLATELET ESTIMATE ADEQUATE; RBC MORPH NORMAL
[2023-01-28] MEDS ORDERED: ENOXAPARIN 80 MG/0.8 ML SYRINGE SC ONE (20:00)
[2023-01-28] MEDS ORDERED: predniSONE 20 MG TABLET PO ONE (20:00)
[2023-01-28] MEDS ORDERED: methylPREDNISolone INJ 125 MG VIAL IVP ONE (20:00)
[2023-01-28 20:21] LABS: INR 0.9 (0.8-1.4); PROTHROMBIN TIME PATIENT 12.7 SEC (12.2-14.7)
[2023-01-28 20:37] LABS: BACTERIA,URINE TRACE /HPF; BILIRUBIN,URINE NEGATIVE (NEGATIVE); CLARITY,URINE CLEAR; COLOR,URINE YELLOW; GLUCOSE, URINE (UA) NEGATIVE (NEGATIVE); KETONES,URINE NEGATIVE (NEGATIVE); LEUKOCYTE ESTERASE ,URINE NEGATIVE (NEGATIVE); NITRITE,URINE NEGATIVE (NEGATIVE); PROTEIN,URINE NEGATIVE (NEGATIVE); RBC,URINE 0-2 /HPF; WBC,URINE 0-2 /HPF
[2023-01-28 20:51] VITALS: BP 171/81
[2023-01-28] MEDS ORDERED: KETOROLAC INJ 30 MG/ML VIAL ONE (21:25)
[2023-01-28] MEDS ORDERED: KETOROLAC INJ 30 MG/ML VIAL IVP ONE ×2 (21:30→21:45)
[2023-01-28] MEDS ORDERED: KETOROLAC INJ 30 MG/ML VIAL IVP PRN (21:30)
[2023-01-28] MEDS: CATHETER FLUSH 10 ML SYR IVP SCH (22:08)
[2023-01-28 23:02] VITALS: BP 178/72
[2023-01-29 02:58] VITALS: BP 166/72
[2023-01-29] MEDS ORDERED: KETOROLAC INJ 30 MG/ML VIAL IVP PRN (03:15)
[2023-01-29] MEDS: CATHETER FLUSH 10 ML SYR IVP SCH ×2 (06:17→14:33)
[2023-01-29] MEDS ORDERED: predniSONE 20 MG TABLET PO SCH (07:00)
[2023-01-29 07:31] VITALS: BP 195/85
--- NOTE | 2023-01-29 08:58 | Diagnostic Imaging Report ---
PROCEDURE: US left lower extremity venous. INDICATION: Left lower extremity pain EXAMINATION: Grayscale and color Doppler evaluation of the deep veins of the left lower extremity were performed with waveform analysis. FINDINGS: Continuous venous flow is present. No intraluminal filling defect is identified. There is normal compressibility and response to augmentation. No abnormal perivascular fluid collection is identified. IMPRESSION: No ultrasound evidence of left lower extremity deep venous thrombosis. Dictated by: Dictated on workstation # [id number]
[2023-01-29] MEDS ORDERED: DOCUSATE SODIUM 100 MG CAPSULE PO SCH (09:00)
--- NOTE | 2023-01-29 10:09 | Physical Therapy Evaluation ---
PT Evaluation-General Medical Diagnosis Admission Date Jan 28, 2023 at 20:13 Medical Diagnosis: gout flare Onset Date: Jan 28, 2023 Therapy Diagnosis Therapy Diagnosis: debility Height/Weight Height (Feet): 5 Height (Inches): 4.00 Weight (Pounds): 200 Weight (Ounces): 0.0 Precautions Precautions/Isolations: Standard Precautions Referral Physician: Jonny Reason for Referral: Evaluation/Treatment Medical History Pertinent Medical History: HTN Current History EMS from [place] due to left knee edema and stiffness Reviewed History: Yes Social History Home: Assisted Living Prior Prior Level of Function SCALE: Activities may be completed with or without assistive devices. 3-Ojqysbyaod-bdfurii completes the activity by him/herself with no assistance from a helper. 5-Set-up or Clean-up Assistance-helper sets up or cleans up; patient completes activity. [place] assists only prior to or following the activity. 4-Supervision or Touching Assistance-helper provides verbal cues and/or touching/steadying and/or contact guard assistance as patient completes activity . Assistance may be provided throughout the activity or intermittently. 3-Partial/Moderate Assistance-helper does LESS THAN HALF the effort. [place] lifts, holds or supports trunk or limbs, but provides less than half the effort. 2-Substantial/Maximal Assistance-helper does MORE THAN HALF the effort. [place] lifts or holds trunk or limbs and provides more than half the effort. 5-Souqykfdk-vfrzjd does ALL the effort. Patient does none of the effort to complete the activity. Or, the assistance of 2 or more helpers is required for the patient to complete the activity. If activity was not attempted, code reason: 7-Patient Refused. 9-Not Applicable-not attempted and the patient did not perform the activity before the current illness, exacerbation or injury. 10-Not Attempted due to Environmental Limitations-(lack of equipment, weather restraints, etc.). 88-Not Attempted due to Medical Conditions or Safety Concerns. Bed Mobility: 6 Transfers (B,C,W/C): 6 Gait: 6 Stairs: 6 Indoor Mobility (Ambulation): Independent Stairs: Independent Prior Devices Use: Walker PT Evaluation-Current Subjective Patient agrees to PT. Pain Numeric Pain Scale: 0-No Pain Location: No Pain Reported Objective Patient Orientation: Normal For Age ROM/Strength ROM Lower Extremities bilateral LE WFL Strength Lower Extremities 4/5 grossly bilateral LE all planes Integumentary/Posture Bowel Incontinence: No Bladder Incontinence: No Posture WFL Neuromuscular (Tone, Coordination, Reflexes) grossly intact Sensory Vision: Wears Glasses Hearing: Functional Transfers Lying to Sitting/Side of Bed(Q: 6 Sit to Stand (QC): 6 Chair/Paw-ic-Xbdmw Xfer(QC): 6 Gait Mode of Locomotion: Walk Anticipated Mode of Locomotion: Walk Walk 10 feet (QC): 6 Walk 50 ft with 2 Turns(QC): 6 Walk 150 ft (QC): 6 Distance: 300' Gait Assistive Device: FWW Comments/Gait Description reciprocal pattern Balance Sitting Static: Normal Sitting Dynamic: Normal Standing Static: Normal Standing Dynamic: Normal Assessment/Needs Patient is currently at independent LOF with all gross motor skills and does not require skilled PT intervention at this time. Rehab Potential: Fair PT Plan Treatment/Plan Treatment Plan: Continue Plan of Care Treatment Duration: Jan 29, 2023 Frequency: 1 time per week Estimated Hrs Per Day: .25 hour per day Patient and/or Family Agrees t: Yes Time Time In: 930 Time Out: 944 DATE: Jan 29, 2023 Total Billed Treatment Time: 14 Total Billed Treatment 1 visit [facility] 14 min LEANDRO THOMPSON PT Jan 29, 2023 10:09
[2023-01-29] MEDS ORDERED: ACET-2267 PO (11:02)
[2023-01-29] MEDS ORDERED: GABA-486 PO (11:02)
[2023-01-29] MEDS ORDERED: MESA800T9 PO (11:02)
[2023-01-29] MEDS ORDERED: CYAN-23 PO (11:02)
[2023-01-29] MEDS ORDERED: ALLO100T PO (11:02)
[2023-01-29] MEDS ORDERED: OMEP40CA6 PO (11:02)
[2023-01-29] MEDS ORDERED: TRAM50TA3 PO (11:02)
[2023-01-29] MEDS ORDERED: FLAX10004 PO (11:02)
[2023-01-29] MEDS ORDERED: XYLI500M MM (11:02)
[2023-01-29] MEDS ORDERED: SUMA50TA2 PO (11:02)
[2023-01-29] MEDS ORDERED: MIRA25TA PO (11:02)
[2023-01-29] MEDS ORDERED: ASCO500T17 PO (11:02)
[2023-01-29] MEDS ORDERED: LISI20TA26 PO (11:02)
[2023-01-29] MEDS ORDERED: LEVO88TA2 PO (11:02)
--- NOTE | 2023-01-29 11:29 | Short Stay Summary-Hospitalist ---
REINALDO TOLENTINO 01/29/23 1129: History of Present Illness HPI/Chief Complaint Pt is a 77 y/o female who presented to the ER yesterday with complaints of L knee pain, redness, swelling, and an inability to bear weight on it. She states that her sxs came on suddenly that same day and that at times her pain is a 10/10. She has not tried anything to help her sxs. She denies any trauma or drinking any alcohol. Reports hx of gout mainly affecting her feet and arthritis. She reports some mild calf pain and denies any hx of DVT. D-dimer was elevated at 0.73 so one dose of SQ enoxaparin 80 mg was given in the ER. Venous doppler today is negative for DVT. She reports hx of a chronically elevated WBC and she has been followed by oncology d/t fear of leukemia. She states today that she does not have leukemia to the best of her knowledge at this time. Her BP was elevated in the ER at 202/97 and today it is around 195/85. She reports normally taking lisinopril/HCTZ 20-12.5 mg/d with a systolic BP around 150 usually. She states that she has been told she has white coat syndrome. Denies any headache or change in urine color. Source: patient Exam Limitations: no limitations Date Seen 01/29/23 Time Seen by a Provider: 11:28 Attending Physician Leobardo William DO PCP Admitting Physician: Melvin Fuller MD Attending Physician: Melvin Fuller MD Referring Physician Date of Admission Jan 28, 2023 at 20:13 Home Medications & Allergies Home Medications Reviewed patient Home Medication Reconciliation performed by pharmacy medication reconciliations windmill technician and/or nursing. Patients Allergies have been reviewed. Allergies Allergies Coded Allergies amoxicillin (Unverified Allergy, Mild, 11/28/08) Sulfa (Sulfonamide Antibiotics) (Unverified Allergy, Unknown, 07/14/14) acetaminophen (Unverified Allergy, Unknown, NAUSEA, 07/14/14) celecoxib (Unverified Allergy, Unknown, 07/14/14) methylprednisolone (Unverified Allergy, Unknown, 07/14/14) trimethoprim (Unverified Allergy, Unknown, 07/14/14) oxycodone (Verified Adverse Reaction, Severe, NAUSEA, 02/11/15) Severe constipation Past Medical/Social/Family Hx Patient Social History Marrital Status: Tobacco Use?: No Smoking Status: Never a Smoker Smokeless Tobacco Frequency: Never a User Use of E-Cig and/or Vaping dev: No Substance use?: No Alcohol Use?: No Pt stated abuse/neglect: No Immunizations Up To Date Influenza Vaccine Up-to-Date: Yes; Up-to-Date Date of Pneumonia Vaccine: Apr 18, 2010 Current Status status: No status: No Advance Directives: Unable to obtain Communicates: Verbally Primary Language: Malaysian Preferred Spoken Language: Malaysian Is interpretation needed?: No Sensory deficits: Vision impairment Implanted or Applied Medical D: Orthopedic hardware Past Medical History Gout, HTN, hypothyroidism, migraines, GERD Review of Systems Constitutional: No chills, No fever EENTM: throat pain; No hearing loss Respiratory: No cough, No dyspnea on exertion, No short of breath Cardiovascular: No chest pain, No palpitations Gastrointestinal: No abdominal pain, No constipation, No diarrhea, No melena, No nausea, No vomiting Genitourinary: No dysuria, No frequency : No Musculoskeletal: back pain, gout (hx in feet. suspicion for L knee), joint pain (L knee), joint swelling (L knee) Skin: change in color; No rash Psychiatric/Neurological: Denies Headache, Denies Weakness Physical Exam Physical Exam Vital Signs Vital Signs - First Documented 01/28/23 01/28/23 17:46 20:51 Temp 37.4 Pulse 80 Resp 16 B/P (MAP) 202/97 (132) Pulse Ox 97 O2 Delivery Room Air Capillary Refill : Less Than 3 Seconds Height, Weight, BMI Height: 5'4.00" Weight: 200lbs. 0.0oz. [id number]; 30.50 BMI Method: General Appearance: No Apparent Distress, WD/WN Eyes: Bilateral Eye Normal Inspection, Bilateral Eye PERRL HEENT: PERRL/EOMI, Normal ENT Inspection, Pharynx Normal, Moist Mucous Membranes; No Tonsillar Exudate Neck: Normal Inspection, Non Tender, Supple Respiratory: Chest Non Tender, Lungs Clear, Normal Breath Sounds, No Accessory Muscle Use, No Respiratory Distress Cardiovascular: Regular Rate, Rhythm, No Murmur, Normal Peripheral Pulses Gastrointestinal: Normal Bowel Sounds, Non Tender, Soft Extremity: Normal Capillary Refill, No Calf Tenderness, No Pedal Edema, Swelling (mild L knee swelling), Other (L knee tenderness to palpation on ant erior knee cap and along lateral calf down to ankle) Neurologic/Psychiatric: Alert, Oriented x3, No Motor/Sensory Deficits, Normal Mood/Affect Skin: Normal Color (states that L knee was red but appears normal in color compared to other side), Warm/Dry; No Cool, No Ecchymosis, No Erythema, No Pallor, No Rash Results Results/Procedures Labs Laboratory Tests 01/28/23 18:10 Patient resulted labs reviewed. Imaging: Reviewed Imaging Report Short Stay Diagnosis Discharge Diagnosis-Short Stay Admission Diagnosis Gout flare, HTN Final Discharge Diagnosis Gout flare, HTN Conclusion Plan Gout flare - Was concern of septic arthritis in ER given elevated WBC of 14.7. However, now knowing that she has a chronically elevated WBC, has no systemic sxs, and d/t clinical exam, septic arthritis is less likely. - Continue prednisone 40 mg PO/d and taper for 7-10 day course - Continue allopurinol 150 mg PO/d - Follow up with PCP to discuss medical therapies in future to keep gout under control HTN - Continue lisinopril 20 mg PO/d - Consider IV hydralazine 5 mg if systolic BP remains >180 Hypothyroidism - Continue levothyroxine 88 mcg/d PO Copy Copies To 1: LEOBARDO WILLIAM KATELYN M MD 01/29/23 1419: Short Stay Diagnosis Conclusion Plan Patient was admitted to the hospital secondary to a gout flare in her left knee. There was initially some concern that this could be a septic arthritis but she was not given any antibiotics and her symptoms completely resolved with p rednisone. Her pain was controlled with tramadol and Toradol. She was seen by physical therapy and was able to ambulate 300 feet. She was offered another night admission to ensure pain control and ability to ambulate at her assisted living but elected to discharge home as she had someone in town that could drive her. She is to follow-up with her primary care physician to follow-up this hospital stay. Copy Copies To 1: LEOBARDO WILLIAM DO Supervisory-Addendum Brief Verification & Attestation Participated in pt care: history, MDM, physical Personally performed: exam, history, MDM, supervision of care Care discussed with: Medical Student Procedures: n/a Results interpretation: Verified all documentation Verification and Attestation of Medical Student E/M Service A medical student performed and documented this service in my presence. I reviewed and verified all information documented by the medical student and made modifications to such information, when appropriate. I personally performed the physical exam and medical decision making. Jovanni Nicolas, Jan 29, 2023,14:16 REINALDO TOLENTINO Jan 29, 2023 11:29 JOVANNI NICOLAS MD Jan 29, 2023 14:19
[2023-01-29 11:44] VITALS: BP 163/80
[2023-01-29] MEDS ORDERED: TRM50T PO (12:14)
[2023-01-29] MEDS ORDERED: PRED10TA22 PO (12:15)
--- NOTE | 2023-01-29 12:16 | Discharge Inst-Simple/Standard ---
Discharge Inst-Standard Discharge Medications New, Converted or Re-Newed RX: Transmitted to Pharmacy Patient Instructions/Follow Up Plan of Care/Instructions/FU: Please continue to take your medications as written. Please follow up with your primary care doctor to follow up this hospital stay. Activity as Tolerated: Yes Discharge Diet: No Restrictions Return to The Hospital For: Chest pain, shortness of breath, fever, weakness, if you feel you are getting worse. JOVANNI VILLALOBOS MD Jan 29, 2023 12:16
== END 2023-01-29 15:40 | disposition home or self-care (01) ==
LOC: EDUNIT# 17:41 → ER 17:42 → UNDOADMOB 20:13 → 4TH 20:13 → UNDODISOB 01-29 15:40
PROVIDERS: ADMIT Internal Medicine; ATTEND Internal Medicine
DX: M10.9 Gout, unspecified (principal); I10 Essential (primary) hypertension; E03.9 Hypothyroidism, unspecified; Z79.890 Hormone replacement therapy; Z79.899 Other long term (current) drug therapy
CPT/HCPCS: 73562; 80053; 81000; 84550; 85007; 85027; 85379; 85610; 85652; 85730; 86141; 93971; 96375; 96376; 97162; 99284; G0378; 36415